=== PATIENT | male | born 1950 | race Caucasian/White ===

== ENCOUNTER 2022-04-17 06:43 | Observation (INO) ==
--- NOTE | 2022-03-14 13:06 | PAT Medication Instructions ---
Medication Instructions Date of Service March 14, 2022 Home Medications metoprolol tartrate 100 mg tablet 100 mg PO QAM rivaroxaban 20 mg tablet (Xarelto) 20 mg PO QAM tamsulosin 0.4 mg capsule (Flomax) 0.4 mg PO QAM ASK your prescriber and surgeon rivaroxaban 20 mg tablet (Xarelto) 20 mg PO QAM (in order to get spinal anesthesia DOS- must be off Xarelto/rivaroxaban for at least 72 hours) Take morning of surgery With a small sip of water, OTHERWISE NOTHING TO EAT OR DRINK AFTER MIDNIGHT: metoprolol tartrate 100 mg tablet 100 mg PO QAM tamsulosin 0.4 mg capsule (Flomax) 0.4 mg PO QAM Other Notes If you have any questions please call us at [phone] or [phone] or [phone] or [phone]
--- NOTE | 2022-03-17 09:47 | Anesthesiology Consultation ---
Date of Service March 17, 2022 Assessment & Plan (1) Encounter for pre-operative examination: Plan - PAT testing to be faxed to PCP for continuity of care. - cardiology clearance 02/13/22: "...may proceed with the proposed surgery...revised cardiac risk index and was found to be a class I risk...only cardiac diagnosis was paroxysmal atrial fibrillation...normal stress test in the past...may stop Xarelto 48 to 72 hours prior..." - cardiology 02/05/22: "...afib/flutter in March 2017...cardioversion...cancelled after he was found to be in NSR echo at the time showed some septal and inferior hypokinesis which was followed up with a stress echo in May 2017 that was negative for stress induced ischemia...h/o excessive alcohol consumption...appropriately anticoagulated on Xarelto..." 1 year f/u recommended. - COVID screening: Per assessment on 03/17/2022: Travel screen negative, no known COVID-19 positive contacts or current COVID-19 related symptoms in past 2 weeks. Pt vaccinated. Surgeon arranging preop COVID testing, scheduled 04/15/2022. Awaiting results. Chart Review Chart Review: Acceptable Risk for Surgery and Patient seen in Pre Admission Testing Teaching & Discussion Pre-Anesthesia Teaching/Discussion Notes: Instructed NPO after midnight before surgery, except medications with 15 cc of water. Medication instructions provided according to the PAT guidelines. History Surgery Operation Date: 04/17/22 09:00 Proposed Procedures p Right Total Knee Arthroplasty - Yasmany Cantrell MD Height/Weight Height: 5 ft 11 in Weight: 79.9 kg Allergies Allergy/AdvReac Type Severity Reaction Status Date / Time No Known Allergies Allergy Verified 03/14/22 10:02 Medications Home Medications Medication Instructions Recorded Confirmed Last Taken metoprolol tartrate 100 mg tablet 100 mg PO QAM 03/14/22 03/14/22 Unknown rivaroxaban 20 mg tablet (Xarelto) 20 mg PO QAM 03/14/22 03/14/22 Unknown tamsulosin 0.4 mg capsule (Flomax) 0.4 mg PO QAM 03/14/22 03/14/22 Unknown Past Medical History Medical History (Updated 03/17/22 @ 14:44 by Razia Pfeiffer PA-C) Afib on xarelto follows / [facility] cardio- [place] History of COVID-19 02/16/2022 home test-sore throat, cough, ghotra, no hospitalization no current issues On anticoagulant therapy xarelto Sleep apnea no device Patient denies h/o stroke, seizures, heart attack, heart failure, DM, HTN, blood clots or blood transfusions. Exercise / Class Metabolic Activity II 4-5 Yardwork/Stairs/Walk up hill (occ dizziness at top of 1 FOS requiring pt to stop; denies presycnope, CP or SOB) Past Surgical History Surgical History S/P colonoscopy S/P eye surgery 10 yrs old S/P tonsillectomy and adenoidectomy Past Anesthesia History No Hx of Anesthesia Complications and No Family Hx of Anesthesia Complications History of PONV No Hx of PONV and No Hx of Motion Sickness Social History Smoking Status: Never smoker Do You Dip or Chew Tobacco: No Hx Alcohol Use: Yes (4 beers per day) Alcohol type: beer alcohol intake frequency: 3 or more drinks per day (4-6 beers daily, denies hx withdrawal, DTs or seizures-advised) Hx Substance Use: No substance use type: does not use Review of Systems Occ reflux, triggered by alcohol intake. Patient denies chest pain, shortness of breath, dyspnea on exertion, fever, chills, cough, wheezing, or palpitations. Physical Exam Vital Signs Vitals BP 129/75 P 60 TEMP 98.1 SP02 95% on RA RESP 17 Physical Full cervical extension range of motion without pain TMD 3.5 finger breadths Mallampati Score 3 Dentition: two metal implants, full lower dentures; chipped left upper front tooth; denies crowns Lungs: normal respiratory effort. Clear throughout to auscultation, no adventitious breath sounds Cardiac: regular rate and rhythm, no murmurs noted Carotid arteries: negative bruit bilat Lab Results Anesthesia Preop Results Results Anesthesia Widget: WBC 5.34 K/ul (4.8-10.8) 03/17/22 Hgb 12.5 g/dl (14.0-18.0) L 03/17/22 Hct 36.4 % (40.1-51.0) L 03/17/22 Plt 282 K/uL (130-400) 03/17/22 Na 139 mmol/L (136-145) 03/17/22 K 4.6 mmol/L (3.5-5.1) 03/17/22 Cl 107 mmol/L (98-107) 03/17/22 CO2 27 mmol/L (21-32) 03/17/22 BUN 13 mg/dl (6-23) 03/17/22 Creat 0.82 mg/dl (0.6-1.4) 03/17/22 Glucose Level 94 mg/dl (70-99(Fasting)) 03/17/22 PT 13.0 Seconds (9.0-12.0) H 03/17/22 PTT 29.9 Seconds (21.0-31.0) 03/17/22 INR 1.2 (0.9-1.1) H 03/17/22 HA1c 5.9 % (4.5-5.6) H 03/17/22 Urine Color Yellow 03/17/22 Urine Appearance Clear (Clear) 03/17/22 Urine pH 5.5 (4.5-7.5) 03/17/22 Urine Specific Kingsley 1.015 (1.000-1.030) 03/17/22 Urine Protein Negative (Negative) 03/17/22 Urine Glucose (UA) Negative (Negative) 03/17/22 Urine Ketones Negative (Negative) 03/17/22 Urine Blood Negative (Negative) 03/17/22 Urine Nitrite Negative (Negative) 03/17/22 Urine Bilirubin Negative (Negative) 03/17/22 Urine Urobilinogen Negative (Negative) 03/17/22 Urine Leukocyte Esterase Trace (Negative) H 03/17/22 Urine WBC (Auto) 1-5 /hpf (0-5) 03/17/22 Urine RBC (Auto) 0-4 /hpf (0-4) 03/17/22 Urine Hyaline Casts (Auto) 0 /lpf (0-5) 03/17/22 Urine Epithelial Cells (Auto) 0-5 /lpf (0-5) 03/17/22 Urine Bacteria (Auto) Negative (Negative) 03/17/22 Blood Type A Positive 03/17/22 Antibody Screen NEGATIVE 03/17/22 Testing Laboratory Results Surgeon's office made aware of mild anemia. Electrocardiogram Date: 03/17/22 Sinus bradycardia with 1st degree AV block, rate 59 bpm Chest X-Ray Date: 03/17/22 Cardiomediastinal and hilar silhouettes are within normal limits. Atherosclerosis of the aorta. Hyperinflation with diaphragmatic flattening. No pneumothorax, pleural effusion, airspace consolidation or overt pulmonary edema. Degenerative changes of the shoulders and spine. IMPRESSION: No acute process Stress Test Date: 05/21/17 Exercise METS 8.5 MPHR 93% Negative stress echo for ischemia EF 55-60%
--- NOTE | 2022-04-16 15:53 | History & Physical Report ---
Date of Service April 16, 2022 Assessment & Plan (1) Primary osteoarthritis of right knee: Plan: Treatment options discussed with the patient. He has failed conservative measures and would like to proceed with knee replacement. Risks, benefits and alternatives to surgery including but not limited to infection, DVT, pain, stiffness, need for revision surgery, damage to blood vessels, damage to nerves, PE, , were discussed with the patient and they wish to proceed. Plan on right total knee arthroplasty scheduled with Dr. Cantrell at [facility] on April 17. We will plan on outpatient PT. We will resume home Xarelto postop for DVT prophylaxis. All questions answered. Follow-up postop. History of Present Illness Chief Complaint: Right knee pain Primary Care Provider: NO PCP 72-year-old male with past medical history significant for A. fib, high cholesterol, GERD, MARKEL who presents with ongoing right knee pain. He has end- stage osteoarthritis. He has failed conservative measures. Pain is interfering with his daily activities. He would like to proceed with knee replacement. Patient denies headaches, sweats, fevers, chills, double vision, blurred vision, cough, sore throat, dysphagia, chest pain, sob, wheezing, n/v/d/c, numbness, tingling, fatigue, urinary symptoms, mood disorders. ROS positive for right knee pain and stiffness. Allergies Allergy/AdvReac Type Severity Reaction Status Date / Time No Known Allergies Allergy Verified 03/14/22 10:02 Home Medications Medication Instructions Recorded Confirmed Type metoprolol tartrate 100 mg tablet 100 mg PO QAM 03/14/22 03/14/22 History rivaroxaban 20 mg tablet (Xarelto) 20 mg PO QAM 03/14/22 03/14/22 History tamsulosin 0.4 mg capsule (Flomax) 0.4 mg PO QAM 03/14/22 03/14/22 History Past Med/Surg History Medical History (Updated 04/16/22 @ 15:52 by Kota Rankin PA-C) Afib on xarelto follows / [facility] cardio- [place] History of COVID-19 02/16/2022 home test-sore throat, cough, ghotra, no hospitalization no current issues On anticoagulant therapy xarelto Sleep apnea no device Surgical History S/P colonoscopy S/P eye surgery 10 yrs old S/P tonsillectomy and adenoidectomy Social History Smoking Status: Never smoker Second Hand Exposure: No; Hx Alcohol Use: Yes (4 beers per day) Alcohol type: beer Hx Substance Use: No Preferred Language: Polish Communication Ability: Effective Marine Diesel Technician Required: No Beliefs That Will Affect Care: None Current Living Situation: Significant Other Feels Safe at Home: Yes Assistive Devices: Denture - Lower and Glasses Review of Systems All systems reviewed & are unremarkable except as noted in HPI & below Physical Exam Constitutional: well developed and well nourished; no acute distress Eyes: PERRL, conjunctivae normal, anicteric sclerae ENMT: external ear and nose normal, oropharynx normal Neck: trachea midline, no thyromegaly Respiratory: normal respiratory effort, lungs clear to auscultation Cardiovascular: RRR, no murmur, no edema Musculoskeletal: Right knee: Varus alignment. Mild effusion. Tenderness medial joint line and pes anserine. Moderate crepitation with range of motion. Positive Tania's, stable valgus varus stress. Range of motion 0-1 25. Mild pseudolaxity with valgus stress Skin: no rashes, warm and dry Neurologic: patellar DTR's 2+ bilat, sensation intact Psychiatric: A+Ox3, euthymic affect Results & Data ([facility]) Diagnostic Findings Right knee: Varus alignment. [id number] medial compartment, significant degenerative changes patellofemoral compartment. Peritubular osteophyte formation subchondral sclerosis.
[~2022-04-17 06:43] MED LIST: ACETAMINOPHEN 500 MG TAB PO SCH; BUPIVACAINE 0.5 % 5 MG/1 ML PF 10ML VIAL ONE; CeleBREX 200 MG CAP PO SCH; FAMOTIDINE 20 MG TAB PO SCH; GABAPENTIN 300 MG CAP PO SCH; LR 500ML BOLUS, THEN 15ML/HR IV SCH; METOCLOPRAMIDE HCL 10 MG TABLET PO SCH; ROPIVACAINE 0.5% 5 MG/ML 30 ML VIAL ONE; ROPIVACAINE 0.5% HCL/PF 150 MG, BUPIVACAINE 0.75% MPF 20 ML, EPINEPHrine 30MG/30ML (OR ... INFIL SCH; TRANEXAMIC ACID 1,000 MG **IV Intra-op IV SCH; TRANEXAMIC ACID 1,000 MG **IV Pre-op IV SCH; ceFAZolin 2000MG 2,000 MG/15 ML SYR IV SCH; dexAMETHasone 4 MG TAB PO SCH
[2022-04-17] MEDS ORDERED: ORTHO JOINT ANESTHETIC ONE (07:09)
[2022-04-17] MEDS ORDERED: MIDAZOLAM HCL 1 MG/ML 2ML VIAL ONE (07:16)
[2022-04-17] MEDS ORDERED: PROPOFOL IV EMULSION 10 MG/ML 20 ML VIAL IV ONE (07:16)
[2022-04-17] MEDS ORDERED: DEXAMETHASONE SOD INJ 4 MG/ML VIAL ONE (07:16)
[2022-04-17] MEDS ORDERED: LIDOCAINE 2% MPF LOCAL 5 ML VIAL INFIL ONE (07:16)
[2022-04-17] MEDS ORDERED: fentaNYL citrate 100 MCG/2 ML VIAL ONE (07:17)
--- NOTE | 2022-04-17 07:34 | History & Physical Bridge Note ---
Date of Service April 17, 2022 History & Physical Bridge Note I have examined the patient, reviewed the History & Physical and in the interval since the performance of the History & Physical I have noted the following changes of clinical significance: no changes noted
[2022-04-17] MEDS ORDERED: ePHEDrine sulfate 50 MG/ML AMP IV PRN (08:26)
[2022-04-17] MEDS ORDERED: ATROPINE SULFATE 0.1 MG/ML 10ML SYR IV PRN (08:26)
[2022-04-17] MEDS ORDERED: fentaNYL citrate 100 MCG/2 ML VIAL IV PRN (08:26)
[2022-04-17] MEDS ORDERED: ONDANSETRON INJ 2 MG/ML 2 ML VIAL IV PRN ×2 (08:26→12:55)
--- NOTE | 2022-04-17 10:38 | Operative Report ---
Post Operative Report Pre & Post Diagnosis Operation Date: 04/17/22 09:00 Pre-Op Diagnosis: Primary Osteoarthritis of Right Knee Post-Op Diagnosis: Primary Osteoarthritis of Right Knee I identified the patient and participated in the time-out.: Yes Procedure Operation Date: 04/17/22 09:00 Actual Procedures p Right Total Knee Arthroplasty(Right), application superficial wound VAC- Yasmany Cantrell MD Surgeon Yasmany Cantrell MD Band Bias Machine Operator Horace JONES Estimated Blood Loss 5 Findings Consistent with Post-Op Diagnosis Specimens Bone cuts Drains 2 Hemovac Anesthesia Type MAC Spinal Regional Complications none Disposition Disposition: Recovery Room Indications 72-year-old male with chronic gross osteoarthritis right knee failed conservative management. X-rays demonstrate [id number] in medial aspect the patellofemoral joint and [id number] medial compartment with a varus knee. Description of Procedure Patient was taken to the operating room placed supine on the operating table and anesthetized under spinal MAC regional block anesthesia. Exam under anesthesia demonstrated relatively thin leg with a varus knee no pseudolaxity full range of motion small effusion. A pneumatic tourniquet was placed about the thigh of the right lower extremity. The right lower extremity was prepped and draped in usual sterile fashion. The leg was elevated exsanguinated with an Esmarch bandage and the pneumatic tourniquet was raised to 300 mm mercury. An anterior incision was made across the right knee. The skin was incised longitudinally subcutaneous flaps were elevated and an incision was made through the medial retinaculum extending up into the mid third of the quadriceps tendon and extended down to the medial tibial tubercle. Intra-articular findings demonstrated tricompartmental osteoarthritis with [id number] medial compartment and medial patellofemoral joint with some ganglion on cysts in the retropatellar fat pad and anterior medial knee and cyst over the ACL. Degenerative medial and lateral meniscus tears and moderate synovitis. The knee was exposed by excising the infrapatellar fat pad, excising the meniscal remnants and anterior cruciate ligament. Any inflamed synovial tissue was resected. The fat pad over the anterior femur was resected for placement of the component in that area. The lateral synovial bands were release. The cysts were all resected. The femur was exposed. The custom femoral cutting block was pinned in position. The distal femoral cutting block was applied. The distal femoral cut was made with the oscillating saw. The size 8, 4-in-1 cutting block was placed. The anterior and posterior chamfer cuts were made. The knee was extended and a subperiosteal peel lateral release was performed around the patella. The patella width was measured and width was reproduced using freehand cut technique. The 35 millimeter symmetrical patella was used. 3 drill holes a re made for the pegs. The tibia was exposed. A custom tibial cutting block was positioned and drill holes were made for the cutting guide. Cutting guide was placed and the proximal cut was made with the oscillating saw. All osteophytes were resected. The lamina concrete form setter and finisher was used to assess ligamentous balance and the ligaments were balanced in extension and flexion. He had a medial release around the proximal medial tibia and a minor posterior medial release. The tibia was reexposed and measured for a size F tibial component. This was externally rotated in line with the tibial tubercle and the fixation pins were drilled. The proximal tibia was fashioned with the drill and punch. The size 8 CR femoral trial was inserted. The trial MC inserts were used. The 12 mm insert gave balanced ligaments through full range of motion. The patella tracked centrally. the trials were removed. The orthomix anesthetic cocktail was injected per protocol. The knee was then copiously irrigated with pulsatile lavage saline solution. The final components were cemented with Refobacin bone cement. The final components were Olvin persona 8 standard CR right femoral component, capital F right tibial component, 12 MC right tibial polyethylene bearing, 35 symmetrical patella. After the cement cured with the knee in full extension the Betadine soak was used per protocol. The knee joint was copiously irrigated with pulsatile lavage saline solution . 2 drains were brought out laterally and connected to a Hemovac. The quadriceps tendon and medial retinaculum were closed with interrupted [id number] #1 Vicryl sutures. The knee was taken through a full range of motion and repair was secure. The subcutaneous tissues were closed with 2-0 Vicryl sutures and skin was closed with paulina. Aris and Acticoat superficial wound VAC was applied and the patient tolerated the procedure well. Horace JONES my physician talent acquisition assistant, participated as wellness assistant and was integral part in all aspects of the procedure., He assisted in soft tissue retraction, instrument management ,leg positioning, the closure and will participate in the postoperative care of the patient. I attest to the content of the Intraoperative Record and any orders documented therein. Any exceptions are noted below.
--- NOTE | 2022-04-17 11:45 | Anesthesiology Progress Note ---
Date of Service April 17, 2022 Anesthesia Post Procedure Vital Signs Vital Signs: Temp Pulse Pulse Resp BP Pulse Ox O2 Del Method 04/17/22 11:40 58 L 14 125/70 95 Nasal Cannula 04/17/22 11:10 61 18 117/70 94 Room Air 04/17/22 11:30 60 20 123/74 96 Nasal Cannula 04/17/22 11:20 60 16 108/64 97 Room Air 04/17/22 11:00 58 L 20 109/63 98 Oxymask 04/17/22 10:51 97.0 F L 58 L 16 97/59 L 98 Oxymask 04/17/22 07:21 97.9 F 61 18 151/83 H 97 Room Air O2 Flow Rate 04/17/22 11:40 2 04/17/22 11:10 04/17/22 11:30 2 04/17/22 11:20 04/17/22 11:00 3 04/17/22 10:51 6 04/17/22 07:21 Transfer of Care Handoff Completed per policy Notes Mental Status: alert / awake / arousable and participated in evaluation Patient Amnestic to Procedure: Yes Nausea / Vomiting: adequately controlled Pain: adequately controlled Airway Patency, RR, SpO2: stable & adequate BP & HR: stable & adequate Hydration State: stable & adequate Neuraxial Anesthesia: was administered and sensory block is resolving Anesthetic Complications: no major complications apparent and Pt Satisfied with anesthetic care
--- NOTE | 2022-04-17 12:35 | XRay Report ---
XR knee RT 1 or 2V routine HISTORY: 72 years-old Male Surgical Post Op right knee total joint arthroplasty COMPARISON: None TECHNIQUE: 3 views of the right knee FINDINGS: Total joint arthroplasty with patellar resurfacing. Anterior midline skin paulina are noted along wit h expected postoperative soft tissue swelling with deep tissue air. Surgical drainage catheter is in place. No acute fracture, alignment or unexpected opaque foreign body. IMPRESSION: Total joint arthroplasty with expected postoperative changes. ACT 112: Negative or not required by law. The above report was generated using voice recognition software. It may contain grammatical, syntax o r spelling errors. Electronically signed by: Daren Bishop M.D. 04/17/2022 12:34 PM
[2022-04-17] MEDS ORDERED: NALOXONE HCL 0.4 MG/1 ML VIAL/CARP IV PRN (12:55)
[2022-04-17] MEDS ORDERED: bisacodyL 10 MG SUPP PR PRN (12:55)
[2022-04-17] MEDS ORDERED: oxyCODONE HCL IR 5 MG TAB (IMMEDIATE RELEASE) PO PRN (12:55)
[2022-04-17] MEDS ORDERED: MAGNESIUM HYDROXIDE SUSP 30 ML UDC PO PRN (12:55)
[2022-04-17] MEDS ORDERED: HYDROmorphone INJ 0.5 MG/0.5 ML SYR IV PRN (12:55)
[2022-04-17] MEDS: SODIUM CHLORIDE 0.9% 1000ML 1,000 ML IV SCH ×2 (13:17→22:41)
--- NOTE | 2022-04-17 13:23 | Consultation ---
Date of Consultation April 17, 2022 Assessment & Plan (1) Primary osteoarthritis of right knee: (2) Afib: (3) HTN (hypertension): (4) BPH (benign prostatic hyperplasia): (5) Pre-diabetes: Plan This is a 72-year-old male who has significant past medical history of PAF anticoagulated on Xarelto, HTN, HLD, alcohol abuse, MARKEL noncompliant with CPAP, GERD and BPH who presents for elective right total knee arthroplasty by Dr. Cantrell. Primary osteoarthritis of R knee s/p R TKA by Dr. Cantrell, POD #0 EBL 10ml tolerated procedure well pain/wound management per ortho activity and therapy as prescribed by ortho encourage incentive spirometry PAF continue metoprolol Xarelto to resume evening of 04/18, per ortho HTN continue metoprolol BPH continue flomax Pre diabetes a1c pre op was 5.9 encourage diet/lifestyle modifications post operatively follow up with PCP Alcohol Abuse 4 light beers a day, last drink 04/16 at 1700 will add awss protocol, prn ativan no hx of withdrawal in past DVT ppx: SCDS, Xarelto to resume 04/18 Dispo: per primary PCP: Betzy Vazquez FULL CODE Pt was seen and examined in collaboration with Dr. Feldman, please see addendum Thank you for this consultation. We will follow the patient with you during their hospital stay. You can reach a member of the [facility] Hospitalist Team 02/03 via hospitalist role on tiger text. Supervising Physician Co-Signing Physician Notes 72-year-old male with PMH of PAF on Xarelto, HTN, HLD, alcohol abuse, MARKEL noncompliant with CPAP, GERD and BPH is a medical consult status post right total knee arthroplasty by Dr. Cantrell on 04/17/22. 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 Reports minimal belly distention, has not moved gas, c/t monitor for bowel movements/activity. Pain Mx/PT OT/DVT Px per 1* team. Upon Exam: GENERAL: Alert and oriented x3. NAD, on RA. HEENT: No pallor, no icterus. Pupils equal, round and reactive to light. Oral mucosa moist. NECK: No JVD, no neck masses. HEART: S1 and S2 heard. Regular rate and rhythm. No murmur, no gallop. RESPIRATORY SYSTEM: Normal AP diameter. No accessory muscle use. No wheezing, no crackles. ABDOMEN: Soft, bowel sounds decreased, minimal distension, nontender. CENTRAL NERVOUS SYSTEM: No facial droop. Speech is clear. Obeys simple commands. Moves extremities. EXTREMITIES: No edema, no erythema seen. Rt knee w/ clean dressing w/o soakage. Hemovac drain in situ w/ minimal serosanguineous collection noted. Distal RLE NV status WNL. I have seen and examined the patient and have discussed the case with the provider above. I agree with the assessment and plan as stated. History of Present Illness Requesting Physician: Dr. Cantrell Reason for Consultation: Dr. Cantrell Attending Physician: Yasmany Cantrell MD History of Present Illness This is a 72-year-old male who has significant past medical history of PAF anticoagulated on Xarelto, HTN, HLD, alcohol abuse, MARKEL noncompliant with CPAP, GERD and BPH who presents for elective right total knee arthroplasty by Dr. Cantrell. He tolerated the procedure well. Of significance pt follows [facility] provider Betzy Vazquez for primary care. He also follows [facility] cardiology. He has hx of PAF back in 2017 w/o recurrence. He is maintained on metoprolol succinate and xarelto. He also has hx of HTN controlled with metoprolol. Per pre op clearance notes he does have hx of alcohol abuse drinking ~ 4 beers a day. His last drink was last evening at 1700. He is sitting up in bed eating lunch. States procedure went well. Denies any pain and currently still has no feeling to b/l lower extremities. Denies f/c/s, chest pain, sob, n/v/d, abd pain, cough, uri sx, change in bowel or urinary habits. Offers no acute concerns. Brother is at bedside who also had knee replacements by Dr. Cantrell. Allergies Allergy/AdvReac Type Severity Reaction Status Date / Time No Known Allergies Allergy Verified 04/17/22 07:12 Home Medications Medication Instructions Recorded Confirmed Type rivaroxaban 20 mg tablet (Xarelto) 20 mg PO QAM 03/14/22 04/17/22 History tamsulosin 0.4 mg capsule (Flomax) 0.4 mg PO QAM 03/14/22 04/17/22 History metoprolol succinate 100 mg 100 mg PO DAILY 04/17/22 04/17/22 History tablet,extended release 24 hr Patient History Medical History (Updated 04/17/22 @ 13:19 by Shelly Clement PA-C) Afib on xarelto follows / [facility] cardio- [place] BPH (benign prostatic hyperplasia) GERD (gastroesophageal reflux disease) History of COVID-19 02/16/2022 home test-sore throat, cough, ghotra, no hospitalization no current issues HLD (hyperlipidemia) HTN (hypertension) On anticoagulant therapy xarelto Pre-diabetes Sleep apnea no device Surgical History S/P colonoscopy S/P eye surgery 10 yrs old S/P tonsillectomy and adenoidectomy Family History (Updated 04/17/22 @ 13:45 by Shelly Clement PA-C) Father Myocardial infarction Diabetes Mother , 80 Lymphoma Social History Smoking Status: Never smoker Second Hand Exposure: No; Do You Dip or Chew Tobacco: No; Tobacco Cessation Education Requested by Patient: No Hx Alcohol Use: Yes (4 beers per day) Alcohol type: beer Hx Substance Use: No Preferred Language: Swedish Communication Ability: Effective 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 Beliefs That Will Affect Care: None Current Living Situation: Significant Other Other Information That Helps Us Care for You: No Feels Safe at Home: Yes Safety Concerns: Feels Safe At This Time Assistive Devices: Denture - Lower and Glasses Review of Systems Review of Systems: All systems reviewed & are unremarkable except as noted in HPI & below Physical Exam Physical Exam: Constitutional: WD/WN, M sitting up in bed eating lunch, vitals as above, NAD, pleasant, conversing easily Head: Normocephalic, Atraumatic Eyes: PERRL, conjunctivae normal, anicteric sclerae ENMT: external ear and nose normal, oropharynx normal Neck: trachea midline, no thyromegaly normal visual inspection Respiratory: normal respiratory effort, lungs clear to auscultation, no wheeze, rales, rhonchi. Normal insp/exp effort, no accessory muscle use Cardiovascular: RRR, no murmur, no edema Vessels: no JVD or carotid bruit Chest: normal inspection of chest Abdomen: normal bowel sounds, soft, nontender, no hepatosplenomegaly Musculoskeletal: no cyanosis or clubbing, extremities motor strength 5/5 Skin: no rashes, warm and dry normal turgor Neurologic: PERRL, EOMI, accommodation nl, no face palsy, no dysarthria CN's II-XI intact bilaterally and moves all extremities Psychiatric: A+Ox3, euthymic affect Lymphatic: no cervical or axillary lymphadenopathy : deferred Results & Data ([facility]) Vital Signs (Past 12 Hours) Vital Signs Temp Pulse Pulse Resp BP Pulse Ox O2 Del Method 04/17/22 12:30 61 14 121/67 97 Nasal Cannula 04/17/22 12:15 36.1 C L 62 12 117/69 95 Nasal Cannula 04/17/22 12:00 55 L 12 123/71 96 Nasal Cannula 04/17/22 11:50 56 L 12 115/70 95 Nasal Cannula 04/17/22 11:40 58 L 14 125/70 95 Nasal Cannula 04/17/22 11:10 61 18 117/70 94 Room Air 04/17/22 11:30 60 20 123/74 96 Nasal Cannula 04/17/22 11:20 60 16 108/64 97 Room Air 04/17/22 11:00 58 L 20 109/63 98 Oxymask 04/17/22 10:51 36.1 C L 58 L 16 97/59 L 98 Oxymask 04/17/22 07:21 36.6 C 61 18 151/83 H 97 Room Air O2 Flow Rate 04/17/22 12:30 2 04/17/22 12:15 2 04/17/22 12:00 2 04/17/22 11:50 2 04/17/22 11:40 2 04/17/22 11:10 04/17/22 11:30 2 04/17/22 11:20 04/17/22 11:00 3 04/17/22 10:51 6 04/17/22 07:21 Laboratory Results Preop lab work from 03/17/2022 CBC: H&H 12.5 and 36.4, WC 5.34, platelet 282 BMP: Sodium 139, K4.6, BUN 13, creatinine 0.82 A1c 5.9 Diagnostic Findings CXR - no acute abnormality from 03/17/22 Medications Administered Current Inpatient Medications Acetaminophen (Acetaminophen 500 Mg Tab) 1,000 mg PO Q8 [facility] Stop: 05/17/22 13:59 Bisacodyl (Bisacodyl 10 Mg Supp) 10 mg [place] DAILY PRN PRN Reason: Constipation Stop: 05/17/22 12:54 Docusate Sodium (Docusate Sodium 100 Mg Cap) 100 mg PO BID [facility] Stop: 05/17/22 20:59 Hydromorphone HCl (Hydromorphone Inj 0.5 Mg/0.5 Ml Syr) 0.5 mg IV Q4H PRN PRN Reason: Pain or Pre PT Stop: 05/01/22 12:54 Sodium Chloride (Nss 1000ml) 1,000 mls @ 100 mls/hr IV .Q10H [facility] Stop: 04/18/22 06:00 Last Admin: 04/17/22 13:17 Dose: 100 mls/hr Cefazolin Sodium (Ancef 2000mg) 2,000 mg in 15 mls @ 3.75 mls/min IV Q8H [facility]; Protocol Stop: 04/18/22 01:03 Magnesium Hydroxide (Magnesium Hydroxide Susp 30 Ml Udc) 30 ml PO Q6H PRN PRN Reason: Constipation Stop: 05/17/22 12:54 Metoprolol Tartrate (Metoprolol Tartrate 100 Mg Tab) 100 mg PO QAM [facility] Stop: 05/18/22 08:59 Multivitamins (Multivitamin Tab) 1 [facility] Stop: 05/18/22 08:59 Naloxone HCl (Naloxone Hcl 0.4 Mg/1 Ml Vial/Carp) 0.1 mg IV Q5M PRN PRN Reason: Oversedation/Resp Depression Stop: 05/17/22 12:54 Ondansetron HCl (Ondansetron Inj 2 Mg/Ml 2 Ml Vial) 4 mg IV Q6H PRN PRN Reason: Nausea And Vomiting Stop: 05/17/22 12:54 Oxycodone HCl (Oxycodone Hcl Ir 5 Mg Tab (Immediate Release)) 5 - 10 mg PO Q4H PRN PRN Reason: Pain or Pre PT Stop: 05/01/22 12:54 Rivaroxaban (Rivaroxaban 20 Mg Tab) 20 mg PO DAILY@1700 [facility] Stop: 05/18/22 16:59 Sennosides (Senna 8.6 Mg Tab) 17.2 mg PO HS [facility] Stop: 05/17/22 20:59 Tamsulosin HCl (Tamsulosin Hcl 0.4 Mg Cap) 0.4 mg PO QAM [facility] Stop: 05/18/22 08:59 ECG Rate (beats per minute): 59 Rhythm: sinus bradycardia
[2022-04-17] MEDS ORDERED: LORazepam 1 MG TAB PO PRN (13:43)
[2022-04-17] MEDS: ACETAMINOPHEN 500 MG TAB PO SCH ×2 (14:23→21:01)
[2022-04-17] MEDS: ceFAZolin 2000MG 2,000 MG/15 ML SYR IV SCH (18:06)
[2022-04-17] MEDS: DOCUSATE SODIUM 100 MG CAP PO SCH (20:26)
[2022-04-17] MEDS ORDERED: SENNA 8.6 MG TAB PO SCH (21:00)
[2022-04-18] MEDS: ceFAZolin 2000MG 2,000 MG/15 ML SYR IV SCH (00:56)
[2022-04-18] MEDS: ACETAMINOPHEN 500 MG TAB PO SCH (05:31)
[2022-04-18 07:05] LABS: Hematocrit (blood only) 28.4 % (40.1-51.0); Mean Corpuscular Hemoglobin 33.8 pg (25.0-34.0); Mean Corpuscular Hgb Conc 35.2 g/dL (32.0-36.0); Mean Corpuscular Volume 95.9 fL (80.0-100.0); Mean Platelet Volume 11.5 fL (9.4-12.4); Nucleated RBC # (auto) 0.07 K/uL (0-0); Nucleated RBC % (auto) 0.4 %; Platelet Count 267 K/uL (130-400); RDW Coefficient of Variation 13.9 % (11.5-14.5); RDW Standard Deviation 48.5 fL (36.4-46.3); Red Blood Count 2.96 M/uL (4.63-6.08); White Blood Count 19.22 K/ul (4.8-10.8)
[2022-04-18 07:26] LABS: BUN Creatinine Ratio 21.1 (10-20); Calcium 8.3 mg/dl (8.5-10.1); Creatinine Clr Calc Pharmacy 93.6 ml/min; Est GFR (African American) 105.6 ml/min; Est GFR (Non-African American) 91.1 ml/min; Potassium 4.3 mmol/L (3.5-5.1)
[2022-04-18] MEDS: DOCUSATE SODIUM 100 MG CAP PO SCH (07:52)
[2022-04-18] MEDS ORDERED: METOPROLOL SUCC 50MG EXT REL TAB PO SCH (09:00)
[2022-04-18] MEDS ORDERED: MULTIVITAMIN TAB PO SCH (09:00)
[2022-04-18] MEDS ORDERED: TAMSULOSIN HCL 0.4 MG CAP PO SCH (09:00)
[2022-04-18] MEDS ORDERED: METOPROLOL TARTRATE 100 MG TAB PO SCH (09:00)
--- NOTE | 2022-04-18 10:00 | Orthopedic Progress Note ---
Date of Service April 18, 2022 Assessment & Plan (1) Primary osteoarthritis of right knee: Plan: Postop day 1 status post right total knee arthroplasty. PT/OT protocols. Weightbearing as tolerated. DVT prophylaxis-Xarelto p.o. daily, SCDs, [place]. Pain management as written. Patient still needs to undergo occupational therapy. We will continue to watch his blood pressures for now. We will recheck him a little bit later this morning. DC planning-planning for OPPT upon discharge. Admission and Anticipated Discharge Date Admission Date: April 17, 2022 Subjective Postop day 1 Patient sitting up in his chair at the bedside. Discussion with nursing staff as well as physical therapist states that the patient had low blood pressure this morning. He apparently had some lightheadedness near the end of his PT session. SBP at that time was around 60s per physical therapy. Patient did not pass out or have any kind of loss of consciousness. Nursing noted that SBP was 125 when he received medications including metoprolol. Currently the patient is sitting up in the chair to bedside and he feels well. Denies any shortness of breath, chest pain, lightheadedness. Pain is controlled. Physical Exam Physical Exam: Dressings are clean, dry, and intact. Calves are soft nontender. Neurovascular is intact. Toes are mobile. He has good dorsiflexion and plantarflexion of the right foot. Hemovac drainage was 50 mL from the prev ious shift. Results & Data ([facility]) Vital Signs (Past 12 Hours) Vital Signs Temp Pulse Resp BP Pulse Ox O2 Del Method 04/18/22 09:32 92/45 L 04/18/22 07:58 36.8 C 76 16 127/65 94 04/18/22 03:30 37 C 65 16 139/80 94 Room Air Laboratory Results Laboratory Results WBC 19.22 K/ul (4.8-10.8) H 04/18/22 06:06 RBC 2.96 M/uL (4.63-6.08) L 04/18/22 06:06 Hgb 10.0 g/dl (14.0-18.0) L 04/18/22 06:06 Hct 28.4 % (40.1-51.0) L 04/18/22 06:06 MCV 95.9 fL (80.0-100.0) 04/18/22 06:06 MCH 33.8 pg (25.0-34.0) 04/18/22 06:06 MCHC 35.2 g/dL (32.0-36.0) 04/18/22 06:06 RDW Std Deviation 48.5 fL (36.4-46.3) H 04/18/22 06:06 RDW Coeff of Silvia 13.9 % (11.5-14.5) 04/18/22 06:06 Plt Count 267 K/uL (130-400) 04/18/22 06:06 MPV 11.5 fL (9.4-12.4) 04/18/22 06:06 Absolute Nucleated RBC 0.07 K/uL (0-0) H 04/18/22 06:06 Nucleated RBC % (auto) 0.4 % 04/18/22 06:06 Sodium 136 mmol/L (136-145) 04/18/22 06:06 Potassium 4.3 mmol/L (3.5-5.1) 04/18/22 06:06 Chloride 108 mmol/L (98-107) H 04/18/22 06:06 Carbon Dioxide 23 mmol/L (21-32) 04/18/22 06:06 Anion Gap 5 (3-11) 04/18/22 06:06 BUN 16 mg/dl (6-23) 04/18/22 06:06 Creatinine 0.76 mg/dl (0.6-1.4) 04/18/22 06:06 Est Cr Clr Drug Dosing 93.6 ml/min 04/18/22 06:06 Est GFR ( Amer) 105.6 ml/min 04/18/22 06:06 Est GFR (Non-Af Amer) 91.1 ml/min 04/18/22 06:06 BUN/Creatinine Ratio 21.1 (10-20) H 04/18/22 06:06 Glucose 111 mg/dl (70-99(Fasting)) H 04/18/22 06:06 Calcium 8.3 mg/dl (8.5-10.1) L 04/18/22 06:06 SARS-CoV-2, RNA, NAAT NEGATIVE (NEGATIVE) 04/17/22 06:54 Impressions Knee X-Ray 04/17/22 10:57 XR knee RT 1 or 2V routine HISTORY: 72 years-old Male Surgical Post Op right knee total joint arthroplasty COMPARISON: None TECHNIQUE: 3 views of the right knee FINDINGS: Total joint arthroplasty with patellar resurfacing. Anterior midline skin paulina are noted along with expected postoperative soft tissue swelling with deep tissue air. Surgical drainage catheter is in place. No acute fracture, alignment or unexpected opaque foreign body. IMPRESSION: Total joint arthroplasty with expected postoperative changes. ACT 112: Negative or not required by law. The above report was generated using voice recognition software. It may contain grammatical, syntax or spelling errors. Electronically signed by: Daren Bishop M.D. 04/17/2022 12:34 PM
--- NOTE | 2022-04-18 11:53 | Hospitalist Progress Note ---
Date of Service April 18, 2022 Assessment & Plan (1) Primary osteoarthritis of right knee: (2) Afib: (3) HTN (hypertension): (4) BPH (benign prostatic hyperplasia): (5) Pre-diabetes: Plan Patient is a 72 yr male with H/O PAF anticoagulated on Xarelto, HTN, HLD, alcohol abuse, MARKEL noncompliant with CPAP, GERD and BPH who presents for elective right total knee arthroplasty by Dr. Cantrell. Primary Osteoarthritis of Right knee s/p R TKA by Dr. 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 DVT Px Xarelto Code Status FULL CODE Admission and Anticipated Discharge Date Admission Date: April 17, 2022 Subjective Patient is seen and examined at bedside Right knee pain at surgical site is controlled States having transient dizziness this morning while having physical therapy Currently dizziness resolved Denies any chest pain, shortness of breath, nausea, abdominal pain Offers no other complaints Review of Systems Review of Systems: All systems reviewed & are unremarkable except as noted in Subjective Physical Exam Physical Exam: Physical Exam: Vitals signs as noted above General Appearance:Thin, no apparent distress Head: normocephalic, Atraumatic Eyes: normal inspection, EOMI Neck: supple, Trachea midline Respiratory/Chest: Normal breath sounds, CTA, No accessory muscle use Cardiovascular: S1, S2, No murmur Abdomen/GI:Soft, Non tender, Bowel sounds present Extremities/Musculoskeletal:normal inspection, no edema, R knee in surgical dressing Neurologic/Psych:AAOX3, grossly no focal neurological deficits Skin: normal color, warm Results & Data Results & Data ([facility]) Vital Signs (Past 12 Hours) Vital Signs Temp Pulse Resp BP Pulse Ox O2 Del Method 04/18/22 09:32 92/45 L 04/18/22 07:58 36.8 C 76 16 127/65 94 04/18/22 03:30 37 C 65 16 139/80 94 Room Air Laboratory Results Short CBC 04/18/22 Range/Units 06:06 WBC 19.22 H (4.8-10.8) K/ul Hgb 10.0 L (14.0-18.0) g/dl Hct 28.4 L (40.1-51.0) % Plt Count 267 (130-400) K/uL BMP 04/18/22 06:06 Sodium 136 Potassium 4.3 Chloride 108 H Carbon Dioxide 23 BUN 16 Creatinine 0.76 Glucose 111 H Calcium 8.3 L
[2022-04-18] MEDS ORDERED: RIVAROXABAN 20 MG TAB PO SCH (17:00)
--- NOTE | 2022-04-20 07:59 | Discharge Summary ---
Date of Service April 20, 2022 Admission HPI Per Admitting Provider 72-year-old male with past medical history significant for A. fib, high cholesterol, GERD, MARKEL who presents with ongoing right knee pain. He has end- stage osteoarthritis. He has failed conservative measures. Pain is interfering with his daily activities. He would like to proceed with knee replacement. Patient denies headaches, sweats, fevers, chills, double vision, blurred vision, cough, sore throat, dysphagia, chest pain, sob, wheezing, n/v/d/c, numbness, tingling, fatigue, urinary symptoms, mood disorders. ROS positive for right knee pain and stiffness. Admission Exam Per Admitting Provider Physical Exam Constitutional: well developed and well nourished; no acute distress Eyes: PERRL, conjunctivae normal, anicteric sclerae ENMT: external ear and nose normal, oropharynx normal Neck: trachea midline, no thyromegaly Respiratory: normal respiratory effort, lungs clear to auscultation Cardiovascular: RRR, no murmur, no edema Musculoskeletal: Right knee: Varus alignment. Mild effusion. Tenderness medial joint line and pes anserine. Moderate crepitation with range of motion. Positive Tania's, stable valgus varus stress. Range of motion 0-1 25. Mild pseudolaxity with valgus stress Skin: no rashes, warm and dry Neurologic: patellar DTR's 2+ bilat, sensation intact Psychiatric: A+Ox3, euthymic affect Principal Diagnosis Right Knee Osteoarthritis Discharge Data Allergies Allergy/AdvReac Type Severity Reaction Status Date / Time No Known Allergies Allergy Verified 04/17/22 07:12 Consultations 04/17/22 13:07 Consult Hospitalist Routine Procedures Performed Operation Date: 04/17/22 09:00 Actual Procedures p Right Total Knee Arthroplasty(Right) - Yasmany Cantrell MD Ordered Studies 04/17/22 05:00 US - OR guided needle placemen Routine Hospital Course (1) Primary osteoarthritis of right knee: Patient:LUBA ISAAC Admit Date:04/17/22 MR#:[id number] Att Phy:Yasmany Cantrell M.D. Acct ID:[id number] Lana Phy:Betzy Vazquez DO Date:1950 Fam Phy: Age:72 Location:3N Sex:M Room/Bed:N387-2 cc: ~ *NOTICE TO RECEIVING [employer]/AGENCY This information is strictly Confidential and protected under [place] law. [place] law prohibits you from making any further disclosure of this information unless further disclosure is expressly permitted by the written consent of the person to whom it pertains or is authorized by law. A general authorization for the release of medical or other information is not sufficient for this purpose. Hospital accepts no responsibility if the information is made available to any other person, INCLUDING THE PATIENT. Date of Service April 18, 2022 Assessment & Plan (1) Primary osteoarthritis of right knee: Plan: Postop day 1 status post right total knee arthroplasty. PT/OT protocols. Weightbearing as tolerated. DVT prophylaxis-Xarelto p.o. daily, SCDs, LUCAS west. Pain management as written. Patient still needs to undergo occupational therapy. We will continue to watch his blood pressures for now. We will recheck him a little bit later this morning. DC planning-planning for OPPT upon discharge. Addendum: Pt progressed with his PT/OT. PT worked with him a second time in the afternoon to go over ambulating on stairs. Pt did very well. No LH. PT stated he progressed well on the stairs. Latest blood pressure showing SBP at 124. Patient was remaining stable and was felt he was stable for discharge. Admission and Anticipated Discharge Date Admission Date: April 17, 2022 Subjective Postop day 1 Patient sitting up in his chair at the bedside. Discussion with nursing staff as well as physical therapist states that the patient had low blood pressure this morning. He apparently had some lightheadedness near the end of his PT session. SBP at that time was around 60s per physical therapy. Patient did not pass out or have any kind of loss of consciousness. Nursing noted that SBP was 125 when he received medications including metoprolol. Currently the patient is sitting up in the chair to bedside and he feels well. Denies any shortness of breath, chest pain, lightheadedness. Pain is controlled. Physical Exam Physical Exam: Dressings are clean, dry, and intact. Calves are soft nontender. Neurovascular is intact. Toes are mobile. He has good dorsiflexion and plantarflexion of the right foot. Hemovac drainage was 50 mL from the previous shift. Results & Data ([facility]) Vital Signs (Past 12 Hours) Vital Signs Temp Pulse Resp BP Pulse Ox O2 Del Method 04/18/22 09:32 92/45 L 04/18/22 07:58 36.8 C 76 16 127/65 94 04/18/22 03:30 37 C 65 16 139/80 94 Room Air Laboratory Results Laboratory Results WBC 19.22 K/ul (4.8-10.8) H 04/18/22 06:06 RBC 2.96 M/uL (4.63-6.08) L 04/18/22 06:06 Hgb 10.0 g/dl (14.0-18.0) L 04/18/22 06:06 Hct 28.4 % (40.1-51.0) L 04/18/22 06:06 MCV 95.9 fL (80.0-100.0) 04/18/22 06:06 MCH 33.8 pg (25.0-34.0) 04/18/22 06:06 MCHC 35.2 g/dL (32.0-36.0) 04/18/22 06:06 RDW Std Deviation 48.5 fL (36.4-46.3) H 04/18/22 06:06 RDW Coeff of Silvia 13.9 % (11.5-14.5) 04/18/22 06:06 Plt Count 267 K/uL (130-400) 04/18/22 06:06 MPV 11.5 fL (9.4-12.4) 04/18/22 06:06 Absolute Nucleated RBC 0.07 K/uL (0-0) H 04/18/22 06:06 Nucleated RBC % (auto) 0.4 % 04/18/22 06:06 Sodium 136 mmol/L (136-145) 04/18/22 06:06 Potassium 4.3 mmol/L (3.5-5.1) 04/18/22 06:06 Chloride 108 mmol/L (98-107) H 04/18/22 06:06 Carbon Dioxide 23 mmol/L (21-32) 04/18/22 06:06 Anion Gap 5 (3-11) 04/18/22 06:06 BUN 16 mg/dl (6-23) 04/18/22 06:06 Creatinine 0.76 mg/dl (0.6-1.4) 04/18/22 06:06 Est Cr Clr Drug Dosing 93.6 ml/min 04/18/22 06:06 Est GFR ( Amer) 105.6 ml/min 04/18/22 06:06 Est GFR (Non-Af Amer) 91.1 ml/min 04/18/22 06:06 BUN/Creatinine Ratio 21.1 (10-20) H 04/18/22 06:06 Glucose 111 mg/dl (70-99(Fasting)) H 04/18/22 06:06 Calcium 8.3 mg/dl (8.5-10.1) L 04/18/22 06:06 SARS-CoV-2, RNA, NAAT NEGATIVE (NEGATIVE) 04/17/22 06:54 Impressions Knee X-Ray 04/17/22 10:57 XR knee RT 1 or 2V routine HISTORY: 72 years-old Male Surgical Post Op right knee total joint arthroplasty COMPARISON: None TECHNIQUE: 3 views of the right knee FINDINGS: Total joint arthroplasty with patellar resurfacing. Anterior midline skin paulina are noted along with expected postoperative soft tissue swelling with deep tissue air. Surgical drainage catheter is in place. No acute fracture, alignment or unexpected opaque foreign body. IMPRESSION: Total joint arthroplasty with expected postoperative changes. ACT 112: Negative or not required by law. The above report was generated using voice recognition software. It may contain grammatical, syntax or spelling errors. Electronically signed by: Daren Bishop M.D. 04/17/2022 12:34 PM Total Time Total Time Spent Total Time Spent (In Minutes): 10 Discharge Plan Discharge Items Patient Disposition: Home - Self-Care Reason For Visit: Unilateral Primary Osteoarthritis Right Knee Discharge Diagnosis: Right knee osteoarthritis Activity: Per Instructions section Weightbearing: Right weightbearing Weightbearing Comment: As tolerated with walker Non-emergency contact: Surgeon Call non-emergency contact if: you have any medication questions, your pain is worsening, your temperature is above 101.5, your wound has increased redness and your wound has increased drainage Follow-up/Referrals: Yasmany Cantrell MD [Surgeon] - (Follow-up with Dr. Baker in 2 weeks from the day of your surgery for your first postoperative visit.) Betzy Vazquez DO [Primary Care Provider] - Diet: Regular Addtl Attending Provider Instructions: Please check your blood pressures regularly for the next week. Your blood pressure will fluctuate. If your blood pressure continues to remain low, you will need to be seen by your primary care physician or your graduate teaching assistant. ACTIVITY RECOMMENDATIONS: SELF CARE INSTRUCTIONS AFTER TOTAL KNEE REPLACEMENT A. You may need to continue a physical therapy program after discharge from the hospital. There are several options available to you. Your doctor will assist you in selecting the best one for you. 1. An out-patient facility 2 to 3 times a week for therapy or home therapy. 2. Continue working on all exercises taught to you in the hospital. Your goals should be to increase bending of your knee to 90 degrees and beyond and to fully straighten your knee. B. You may progress at your own pace from walking with a walker or crutches to a cane; then to no assistive devices. C. Make walking a part of your daily routine. Be up as much as comfortable with rest periods throughout the day. Rest with leg elevation is very important. Use the ice wrap frequently for the first 3-4 weeks. D. There are no restrictions on activities. You may ride in a car, shop, participate in pattern chain builder and all social activities. E. Wear the long elastic stockings (LUCAS hose) 20 hours a day for 2 weeks after surgery. They can be removed several times a day for laundering and for a bath. F. You may shower, no tub baths until cleared by your doctor. SPECIAL CARE INSTRUCTIONS: VERY IMPORTANT TO READ AND REVIEW A. There are a few signs you need to watch for after you are home. Call [facility] if you notice any of the followin. Increased severe knee pain. Some pain is expected especially when you exercise. 2. Increased swelling in your leg or knee; pain or swelling of the calf muscle in either lower leg. 3. Any fluid drainage from the incision. 4. Shortness of breath or chest pain. B. Please call [facility] at if you have any concerns or questions about your operation or recovery. The doctor or his nurse will return your call promptly. C. You must take antibiotics before dental work, bladder, bowel or other surgery. Your doctor will provide you with a permanent care to carry describing this precaution. IMPORTANT: * REMEMBER TO TAKE XARELTO 20 MG DAILY UNLESS OTHERWISE DIRECTED. THIS IS YOUR BLOOD THINNER. * HIGH RISK PATIENTS MAY BE PRESCRIBED A STRONGER BLOOD THINNER. THIS WILL BE PROVIDED AT DISCHARGE. * CALL IF INCREASED PAIN, REDNESS, DRAINAGE OR FEVER GREATER THAT 101. * WEAR LUCAS HOSE 20 HOURS PER DAY FOR 2 WEEKS. * BRANT Dressing - This is a large suction dressing covering your incision. This will help pull any excess drainage from the wound and allow your incision to heal properly. You may shower with this if you can keep the unit outside of the shower. If any bleeding or leakage is noted please call your doctor's office. This will remain on your incision for 7 days and then should be removed. This can be done yourself or by the home nursing staff if applicable. The entire unit is disposable once removed. Once removed, keep incision clean and dry. If redness or drainage is noted, please call your surgeon. . FOLLOW UP VISIT: If appointment is not already scheduled: Please call [facility] to make a follow-up appointment for 2 weeks after your surgery at . Please follow-up with your graduate teaching assistant in the next 10 to 14 days for a medication check. Stand-Alone Forms: My [employer], Smoking Cessation Medications and DC Order Prescriptions: New acetaminophen [Tylenol Extra Strength] 500 mg Tablet 1,000 mg PO Q8 14 Days Qty: 84 0RF polyethylene glycol 3350 [Miralax] 17 gram powder in packet 17 g PO DAILY PRN (Reason: constipation) Qty: 5 0RF oxycodone 5 mg tablet 5 mg PO Q4H MDD 6 PRN (Reason: pain) Qty: 30 0RF Continued tamsulosin [Flomax] 0.4 mg Capsule 0.4 mg PO QAM Xarelto 20 mg Tablet 20 mg PO QAM Rx Instructions: must administer with evening meal metoprolol succinate 100 mg tablet extended release 24 hr 100 mg PO DAILY Discharge Orders: Discharge Order (Routine); Ordered 04/18/22 Ordered By: Horace Stokes Admission Data Admit Date/Time: 04/17/22 10:57 Attending Provider: Yasmany Cantrell Admit Provider: Yasmany Cantrell Primary Care Provider: Betzy Vazquez Other Providers: Rosangela Eubanks ; Julius Umanzor Other Interventions: Discharge Summary Assessment (RN) Last Done: 04/18/22 12:46
== END 2022-04-18 14:22 | disposition home or self-care (01) ==
LOC: PACUINP 06:43 → ASU 06:43 → 3N 12:48

== ENCOUNTER 2022-06-30 07:49 | Observation (INO) ==
--- NOTE | 2022-06-26 09:03 | Anesthesiology Consultation ---
Date of Service June 26, 2022 Assessment & Plan (1) Encounter for pre-operative examination: - s/p R TKA 04/17/22 SAB at L3-L4 1 attempt + PNB. - cardiology 02/05/22: "...afib/flutter in March 2017...cardioversion...cancelled after he was found to be in NSR echo at the time showed some septal and inferior hypokinesis which was followed up with a stress echo in May 2017 that was negative for stress induced ischemia...h/o excessive alcohol consumption...appropriately anticoagulated on Xarelto..." 1 year f/u recommended. - COVID screening: Per salvager on 06/26/2022: Travel screen negative, no known COVID-19 positive contacts or current COVID-19 related symptoms in past 2 weeks. To surgeon's discretion if preop COVID testing is needed. Chart Review Chart Review: Acceptable Risk for Surgery and Patient NOT seen in Pre Admission Testing History Surgery Operation Date: 06/30/22 09:30 Proposed Procedures p TURP (Transurethral Resection of the Prostate) - Juan Antonio Belle DO Height/Weight Height: 5 ft 10.5 in Weight: 79.379 kg Allergies Allergy/AdvReac Type Severity Reaction Status Date / Time No Known Allergies Allergy Verified 06/26/22 07:34 Medications Home Medications Medication Instructions Recorded Confirmed Last Taken rivaroxaban 20 mg tablet (Xarelto) 20 mg PO QAM 03/14/22 06/26/22 04/11/22 tamsulosin 0.4 mg capsule (Flomax) 0.4 mg PO QAM 03/14/22 06/26/22 04/17/22 06:05 metoprolol succinate 100 mg 100 mg PO DAILY 04/17/22 06/26/22 Unknown tablet,extended release 24 hr ciprofloxacin HCl 500 mg tablet 500 mg PO BID #14 tabs 06/24/22 06/26/22 Unknown (Cipro) oxybutynin chloride 5 mg tablet 5 mg PO TID PRN bladder spasms #30 06/24/22 06/26/22 Unknown tabs oxycodone-acetaminophen 7.5 mg-325 1 tab PO Q8H PRN pain #5 tabs 06/24/22 06/26/22 Unknown mg tablet (Percocet) Past Medical History Medical History Afib on xarelto follows / [facility] cardio- [place] BPH (benign prostatic hyperplasia) Naik catheter in place GERD (gastroesophageal reflux disease) History of COVID-19 02/16/2022 home test-sore throat, cough, ghotra, no hospitalization no current issues HLD (hyperlipidemia) HTN (hypertension) On anticoagulant therapy xarelto>ON HOLD FOR SURGERY Pre-diabetes Sleep apnea no device Urinary retention NAIK IN PLACE>BPH AND UTI UTI (urinary tract infection) REASON FOR CIPRO Past Family History Family History Father Diabetes Myocardial infarction Mother , 80 Lymphoma Other No family history of adverse response to anesthesia Past Surgical History Surgical History (Updated 06/26/22 @ 08:57 by Razia Pfeiffer PA-C) History of cystoscopy History of total knee replacement RT TKA 04/17/2022 SAB at L3-L4 1 attempt + PNB. S/P colonoscopy S/P eye surgery 10 yrs old *MUSCLE REPAIR BILAT. EYES S/P tonsillectomy and adenoidectomy Social History Smoking Status: Never smoker Hx Alcohol Use: Yes (4 beers per day>SEE COMMENT BELOW) Alcohol type: beer alcohol intake frequency: 3 or more drinks per day Alcohol Intake Frequency Comment: HAS HAD NO BEER/ALCHOHOL INTAKE SINCE 04/17/22 Hx Substance Use: No substance use type: does not use Lab Results Anesthesia Preop Results Results Anesthesia Widget: WBC 4.55 K/ul (4.8-10.8) L 06/24/22 Hgb 10.8 g/dl (14.0-18.0) L 06/24/22 Hct 32.5 % (40.1-51.0) L 06/24/22 Plt 297 K/uL (130-400) 06/24/22 Na 139 mmol/L (136-145) 06/24/22 K 4.1 mmol/L (3.5-5.1) 06/24/22 Cl 104 mmol/L (98-107) 06/24/22 CO2 29 mmol/L (21-32) 06/24/22 BUN 10 mg/dl (6-23) 06/24/22 Creat 0.77 mg/dl (0.6-1.4) 06/24/22 Glucose Level 99 mg/dl (70-99(Fasting)) 06/24/22 Testing Electrocardiogram Date: 03/17/22 Sinus bradycardia with 1st degree AV block, rate 59 bpm Chest X-Ray Date: 03/17/22 Cardiomediastinal and hilar silhouettes are within normal limits. Atherosclerosis of the aorta. Hyperinflation with diaphragmatic flattening. No pneumothorax, pleural effusion, airspace consolidation or overt pulmonary edema. Degenerative changes of the shoulders and spine. IMPRESSION: No acute process Stress Test Date: 05/21/17 Exercise METS 8.5 MPHR 93% Negative stress echo for ischemia EF 55-60%
[~2022-06-30 07:49] MED LIST changes: -ACETAMINOPHEN 500 MG TAB PO SCH; -BUPIVACAINE 0.5 % 5 MG/1 ML PF 10ML VIAL ONE; -CeleBREX 200 MG CAP PO SCH; -FAMOTIDINE 20 MG TAB PO SCH; -GABAPENTIN 300 MG CAP PO SCH; +LIDOCAINE 2% MPF LOCAL 5 ML VIAL INFIL ONE; +LR 15ML/HR IV SCH; -LR 500ML BOLUS, THEN 15ML/HR IV SCH; -METOCLOPRAMIDE HCL 10 MG TABLET PO SCH; +ONDANSETRON INJ 2 MG/ML 2 ML VIAL ONE; +PROPOFOL IV EMULSION 10 MG/ML 20 ML VIAL IV ONE; -ROPIVACAINE 0.5% 5 MG/ML 30 ML VIAL ONE; -ROPIVACAINE 0.5% HCL/PF 150 MG, BUPIVACAINE 0.75% MPF 20 ML, EPINEPHrine 30MG/30ML (OR ... INFIL SCH; -TRANEXAMIC ACID 1,000 MG **IV Intra-op IV SCH; -TRANEXAMIC ACID 1,000 MG **IV Pre-op IV SCH; -ceFAZolin 2000MG 2,000 MG/15 ML SYR IV SCH; +cefTRIAXone SODIUM 1,000 MG in DEXTROSE 5% 50 ML IV SCH; -dexAMETHasone 4 MG TAB PO SCH; +fentaNYL citrate 100 MCG/2 ML VIAL ONE
--- NOTE | 2022-06-30 08:54 | History & Physical Bridge Note ---
Date of Service June 30, 2022 History & Physical Bridge Note I have examined the patient, reviewed the History & Physical and in the interval since the performance of the History & Physical I have noted the following changes of clinical significance: no changes noted
[2022-06-30] MEDS ORDERED: ePHEDrine sulfate 50 MG/ML AMP IV PRN (10:51)
[2022-06-30] MEDS ORDERED: ONDANSETRON INJ 2 MG/ML 2 ML VIAL IV PRN ×2 (10:51→13:49)
[2022-06-30] MEDS ORDERED: PROMETHAZINE HCL 12.5 MG in SODIUM CHLORIDE 0.9% 50 ML IV PRN (10:51)
[2022-06-30] MEDS ORDERED: ATROPINE SULFATE 0.1 MG/ML 10ML SYR IV PRN (10:51)
[2022-06-30] MEDS ORDERED: fentaNYL citrate 100 MCG/2 ML VIAL ONE (11:14)
[2022-06-30] MEDS ORDERED: BELLADONNA/OPIUM SUPP 60 MG SUPP PR ONE ×3 (11:37→13:49)
--- NOTE | 2022-06-30 12:04 | Operative Report ---
PG Post Operative Report Pre & Post Diagnosis Operation Date: 06/30/22 09:30 Pre-Op Diagnosis: Benign Prostatic Hyperplasia Post-Op Diagnosis: Benign Prostatic Hyperplasia I identified the patient and participated in the time-out.: Yes Procedure Operation Date: 06/30/22 09:30 Actual Procedures p Transurethral Resection of the Prostate and destruction/extraction of Prostate/bladder stones (Not Applicable) - Juan Antonio Belle DO Surgeon Juan Antonio Belle, II, DO Word Processing Operator None Estimated Blood Loss 10 Findings Consistent with Post-Op Diagnosis Large Prostate with obstruction. False passage in prostatic urethra into the left lateral lobe of prostate. Numerous prostate/bladder stones destroyed/removed. Specimens Prostate adenoma. Drains [address] 24Fr Catheter Anesthesia Type General Complications none Disposition Disposition: Recovery Room Indications Patient with obstruction due to prostate enlargement. Risks and benefits discussed at length. Description of Procedure Patient was consented and brought back to the operating room. Patient was placed under anesthesia in the supine position and moved to the dorsal lithotomy position. Patient was prepped and draped in the regular sterile fashion. A time out was completed. A 30degree Cystoscope was placed into the bladder and the entire bladder was examined. The UO's were identified as well as the bladder neck, trigone, dome, and the other important landmarks. The prostatic urethra and large lobes/adenoma was assessed and the veru and bladder neck identified and area/size was assessed. Patient had a large false passage in the sulci between the median lobe and the left lateral lobe. A large amount of stone was discovered in the prostatic urethra with a large amount in the false passage. Stones were also discovered in the bladder. Numerous small stones approx 2-7 mm in size . The resection scope was placed and the fine bipolar loop was selected. Starting at the 5 and 7 o'clock positions, a channel was created from bladder neck to the veru. These channels were then used to resect the median lobe. The median lobe was very large and hand numerous pockets/crypts with debris and stone. The resection was taken down to capsule fibers. The Specimen was removed and sent for analysis. Larger stones were destroyed and the stone material and bulk was extracted. The resection bed and any bleeding areas were fulgurated/cauterized and the entire area inspected. All bleeding was controlled. With the median lobe completely resected the patient had a good channel cleared. Significant edema was noted in the bladder. The area of false passage had been removed and the major issues improved. At this point, it was decided to allow time for healing with possible need for resection of lateral lobes in the future. The bladder was inspected a final time. The bladder was emptied and irrigated. All specimen and debris was removed. The scope was removed with the bladder partially full. A catheter was placed and balloon elevated. This was easily irrigated. The patient was cleaned, aroused from anesthesia, and transferred to the pacu in stable condition having tolerated the procedure well with no complications. I was present and participated in all aspects of the procedure. The patient will be monitored in the PACU until transferred. Will observe overnight with CBI. Plan to monitor. Will followup in 10-14 days for catheter removal. Will plan phone call in 2-3 weeks with pathology. I attest to the content of the Intraoperative Record and any orders documented therein. Any exceptions are noted below.
[2022-06-30] MEDS: fentaNYL citrate 100 MCG/2 ML VIAL IV PRN ×4 (12:07→12:22)
[2022-06-30] MEDS: HYDROmorphone INJ 2 MG/ML SYR/VIAL IV PRN ×4 (12:27→12:46)
[2022-06-30] MEDS ORDERED: OXYBUTYNIN CHLORIDE 5 MG TAB PO PRN (13:49)
[2022-06-30] MEDS ORDERED: MoRPHine SULFATE 2 MG/ML CARP IV PRN (13:49)
[2022-06-30] MEDS ORDERED: PHENAZOPYRIDINE HCL 200 MG TAB PO PRN (13:49)
--- NOTE | 2022-06-30 14:05 | Anesthesiology Progress Note ---
Date of Service June 30, 2022 Anesthesia Post Procedure Vital Signs Vital Signs: Temp Pulse Pulse Resp BP Pulse Ox O2 Del Method 06/30/22 13:30 78 21 163/90 H 100 Nasal Cannula 06/30/22 13:00 66 18 172/91 H 100 Nasal Cannula 06/30/22 12:50 66 22 171/90 H 99 Nasal Cannula 06/30/22 12:40 73 18 172/88 H 100 Nasal Cannula 06/30/22 12:30 72 18 171/84 H 98 Nasal Cannula 06/30/22 12:20 71 24 168/91 H 100 Nasal Cannula 06/30/22 12:10 70 21 169/83 H 100 Oxymask 06/30/22 12:03 36.1 C L 75 20 174/90 H 100 Oxymask 06/30/22 08:14 36.6 C 62 20 138/74 138 H O2 Flow Rate 06/30/22 13:30 2 06/30/22 13:00 2 06/30/22 12:50 2 06/30/22 12:40 2 06/30/22 12:30 2 06/30/22 12:20 2 06/30/22 12:10 6 06/30/22 12:03 6 06/30/22 08:14 Pain Intensity Penis: Pain Intensity: 7 Transfer of Care Handoff Completed per policy Notes Mental Status: alert / awake / arousable and participated in evaluation Patient Amnestic to Procedure: Yes Nausea / Vomiting: adequately controlled Pain: adequately controlled Airway Patency, RR, SpO2: stable & adequate BP & HR: stable & adequate Hydration State: stable & adequate Anesthetic Complications: no major complications apparent
[2022-06-30] MEDS: oxyCODONE/ACETAMINOPHEN 5mg/325mg TAB PO PRN ×2 (14:10→23:06)
[2022-06-30] MEDS: CIPROFLOXACIN / D5W 400 MG/200 ML BAG IV SCH (15:22)
[2022-06-30] MEDS: DOCUSATE SODIUM 100 MG CAP PO SCH ×2 (15:22→19:54)
[2022-06-30] MEDS: SODIUM CHLORIDE 0.9% 1000ML 1,000 ML IV SCH (16:30)
[2022-06-30] MEDS: METOPROLOL SUCC 50MG EXT REL TAB PO SCH (16:31)
[2022-06-30 16:45] LABS: Basophils # (auto) 0.04 K/uL (0-0.2); Basophils % (auto) 0.4 %; Eosinophils # (auto) 0.19 K/uL (0-0.50); Eosinophils % (auto) 2.1 %; Hematocrit (blood only) 31.1 % (40.1-51.0); Hemoglobin 10.5 g/dl (14.0-18.0); Immature Granulocytes # (auto) 0.15 K/uL (0.00-0.02); Immature Granulocytes % (auto) 1.6 %; Lymphocytes # (auto) 2.08 K/uL (1.2-3.4); Lymphocytes % (auto) 22.9 %; Mean Corpuscular Hemoglobin 30.7 pg (25.0-34.0); Mean Corpuscular Hgb Conc 33.8 g/dL (32.0-36.0); Mean Corpuscular Volume 90.9 fL (80.0-100.0); Mean Platelet Volume 9.8 fL (9.4-12.4); Monocytes # (auto) 0.65 K/uL (0.24-0.82); Monocytes % (auto) 7.1 %; Neutrophils # (auto) 5.99 K/uL (1.4-6.5); Neutrophils % (auto) 65.9 %; Platelet Count 420 K/uL (130-400); RDW Coefficient of Variation 16.9 % (11.5-14.5); RDW Standard Deviation 55.9 fL (36.4-46.3); Red Blood Count 3.42 M/uL (4.63-6.08)
[2022-06-30 17:09] LABS: Albumin Globulin Ratio 1.4 (0.9-2); Albumin Level 3.4 gm/dl (3.4-5.0); BUN Creatinine Ratio 12.3 (10-20); Bilirubin,Total 0.4 mg/dl (0.2-1.0); Calcium 8.6 mg/dl (8.5-10.1); Creatinine Clr Calc Pharmacy 87.8 ml/min; Est GFR (African American) 102.9 ml/min; Est GFR (Non-African American) 88.8 ml/min; Globulin 2.5 gm/dl (2.5-4.0); Potassium 3.6 mmol/L (3.5-5.1); Total Protein 5.9 gm/dl (6.0-8.3)
[2022-06-30] MEDS: TAMSULOSIN HCL 0.4 MG CAP PO SCH (17:21)
--- NOTE | 2022-06-30 18:57 | Hospitalist Consultation ---
Date of Consultation June 30, 2022 Assessment & Plan (1) S/P TURP (transurethral resection of prostate): (2) Urinary retention: (3) Afib: (4) HTN (hypertension): (5) BPH (benign prostatic hyperplasia): (6) Pre-diabetes: Plan Timo is a 72 year old male with history of A Fib, urinary retention, BPH, and osteoarthritis of the R knee who is beeing seen for post-op medical management. He is s/p transurethral resection of prostate w/ Dr. Belle and is POD #1. S/p TURP/Urinary Retention/BPH - POD #[address] Sadler - Naik catheter w/ irrigation remains, draining clear/red fluid - Pain well controlled with current regimen (Percocet 5mg/325mg Q4 PRN) - Continue Ciprofloxacin 400 mg Q12 per Urology recommendation - Continue Flomax (Tamsulosin) 0.4 mg PO QAM AFib - Currently NSR - EKG ordered, pending - Home dose Xarelto held prior to surgery - Re-initiation of home Xarelto deferred to surgical team - Continue home dose Metoprolol 100 mg daily HTN - Currently stable, monitor - Continue home dose Metoprolol 100 mg daily Pre-diabetes - Hgb 5.9 (03/2022) - Patient unfamilliar with diagnosis - No current medical management FEN: Regular IVF: NSS @ 75 mL/hr Code status: Full Code DVT ppx: SCD, Marc held defer to surgical team Isolation: None Dispo:Med/Surg Supervising Physician Co-Signing Physician Notes Attending addendum: I have physically seen this patient, have supervised the JESSE's ativities, and agree with the H&P unless as otherwise noted. Assessment and Plan: Status post TURP for BPH with urinary retention- Meds per Dr. Belle Seen postoperatively is medically stable Atrial fibrillation/hypertension- Currently in normal sinus rhythm Return to Xarelto he is when okay with primary surgical team Continue metoprolol with hold parameters No acute medical issues at this time Will follow along during stay History of Present Illness Reason for Consultation: Post-op medical management Requesting Physician: Juan Antonio Belle II, DO Attending Physician: Kofi Guzmán MD History of Present Illness Timo is a 72 year old male with history of A Fib, urinary retention, BPH, and osteoarthritis of the R knee who is beeing seen for post-op medical management. He is s/p transurethral resection of prostate w/ Dr. Belle and is POD #1. Patient notes that he is feeling well post-procedure, he is currently in 6/10 pain and believes that his pain medication from 2PM is wearing off. Patient's pain is primarily located around the urethra/catheter insertion. Patient experiences complete pain relief with current pain regimen. He denies any chest pain, dyspnea, abdominal pain, headaches, or lightheadedness. Patient notes mild pressure in his lower abdomen, w/o pain. No alcohol or tobacco use. PMH: Reviewed with patient Medications: Reviewed with patient Allergies Allergy/AdvReac Type Severity Reaction Status Date / Time No Known Allergies Allergy Verified 06/30/22 08:10 Home Medications Medication Instructions Recorded Confirmed Type rivaroxaban 20 mg tablet (Xarelto) 20 mg PO QAM 03/14/22 06/30/22 History tamsulosin 0.4 mg capsule (Flomax) 0.4 mg PO QAM 03/14/22 06/30/22 History metoprolol succinate 100 mg 100 mg PO DAILY 04/17/22 06/30/22 History tablet,extended release 24 hr ciprofloxacin HCl 500 mg tablet 500 mg PO BID #14 tabs 06/24/22 06/30/22 Rx (Cipro) oxybutynin chloride 5 mg tablet 5 mg PO TID PRN bladder spasms #30 06/24/22 06/30/22 Rx tabs ciprofloxacin HCl 500 mg tablet 500 mg PO BID #10 tabs 07/01/22 Rx docusate sodium 100 mg capsule 100 mg PO BID #60 caps 07/01/22 Rx (Colace) oxycodone-acetaminophen 5 mg-325 1 tab PO TID PRN pain #10 tabs 07/01/22 Rx mg tablet (Percocet) Patient History Medical History Afib on xarelto follows / [facility] cardio- [place] BPH (benign prostatic hyperplasia) Naik catheter in place GERD (gastroesophageal reflux disease) History of COVID-19 02/16/2022 home test-sore throat, cough, ghotra, no hospitalization no current issues HLD (hyperlipidemia) HTN (hypertension) On anticoagulant therapy xarelto>ON HOLD FOR SURGERY Pre-diabetes Sleep apnea no device Urinary retention NAIK IN PLACE>BPH AND UTI UTI (urinary tract infection) REASON FOR CIPRO Surgical History (Updated 06/30/22 @ 19:10 by Jaylon Sosa DO) History of cystoscopy History of total knee replacement RT TKA 04/17/2022 SAB at L3-L4 1 attempt + PNB. S/P colonoscopy S/P eye surgery 10 yrs old *MUSCLE REPAIR BILAT. EYES S/P tonsillectomy and adenoidectomy Family History Father Diabetes Myocardial infarction Mother , 80 Lymphoma Other No family history of adverse response to anesthesia Social History Smoking Status: Never smoker Second Hand Exposure: No; Hx Alcohol Use: No Hx Substance Use: No Preferred Language: Bulgarian Communication Ability: Effective Visual Impairment: No Limitations C++ Quant Developer Required: No Beliefs That Will Affect Care: None Current Living Situation: Alone Current Living Situation Comment: home with significant other. Feels Safe at Home: Yes Assistive Devices: None Review of Systems Review of Systems: As per HPI Physical Exam Physical Exam: Gen: NAD, alert, interactive Resp:Non-labored, no wheezing/rhonchi/rales, CTAB CV:RRR, normal S1/S2, no M/R/G Abd: Soft, non-distended, no TTP, normoactive bowels, no masses Extr: 2+ dp bilaterally, no edema Skin: No rashes lesions or erythema Urinary Catheter present, draining clear, sanguinous fluid Results & Data Results & Data ([facility]) Vital Signs (Past 12 Hours) Vital Signs Temp Pulse Pulse Pulse Resp BP Pulse Ox 06/30/22 18:26 36.5 C 19 132/69 97 06/30/22 18:33 36.7 C 70 19 146/79 H 99 06/30/22 16:03 36.7 C 70 19 146/79 H 99 06/30/22 16:00 73 06/30/22 14:30 67 13 166/85 H 100 06/30/22 14:00 78 24 165/95 H 99 06/30/22 13:30 78 21 163/90 H 100 06/30/22 13:00 66 18 172/91 H 100 06/30/22 12:50 66 22 171/90 H 99 06/30/22 12:40 73 18 172/88 H 100 06/30/22 12:30 72 18 171/84 H 98 06/30/22 12:20 71 24 168/91 H 100 06/30/22 12:10 70 21 169/83 H 100 06/30/22 12:03 36.1 C L 75 20 174/90 H 100 06/30/22 08:14 36.6 C 62 20 138/74 138 H O2 Del Method O2 Flow Rate 06/30/22 18:26 Room Air 06/30/22 18:33 Room Air 06/30/22 16:03 Room Air 06/30/22 16:00 06/30/22 14:30 Room Air 06/30/22 14:00 Room Air 06/30/22 13:30 Nasal Cannula 2 06/30/22 13:00 Nasal Cannula 2 06/30/22 12:50 Nasal Cannula 2 06/30/22 12:40 Nasal Cannula 2 06/30/22 12:30 Nasal Cannula 2 06/30/22 12:20 Nasal Cannula 2 06/30/22 12:10 Oxymask 6 06/30/22 12:03 Oxymask 6 06/30/22 08:14 Resident Activity Tracking Resident Involvement: Resident Care Provided Care Provided: Adult [facility] Medicine
[2022-07-01] MEDS: CIPROFLOXACIN / D5W 400 MG/200 ML BAG IV SCH (00:34)
[2022-07-01] MEDS: oxyCODONE/ACETAMINOPHEN 5mg/325mg TAB PO PRN ×2 (04:15→08:01)
[2022-07-01] MEDS: SODIUM CHLORIDE 0.9% 1000ML 1,000 ML IV SCH (04:15)
[2022-07-01] MEDS: DOCUSATE SODIUM 100 MG CAP PO SCH (08:01)
[2022-07-01] MEDS: METOPROLOL SUCC 50MG EXT REL TAB PO SCH (08:02)
[2022-07-01] MEDS: TAMSULOSIN HCL 0.4 MG CAP PO SCH (08:02)
--- NOTE | 2022-07-01 08:13 | Urology Progress Note ---
Date of Service July 01, 2022 Assessment & Plan (1) BPH (benign prostatic hyperplasia): (2) S/P TURP (transurethral resection of prostate): Plan: - Pt POD#1 s/p TURP with Dr. Belle - Doing well, progressing as expected - Tolerating PO diet - 3 way Sepulveda catheter intact, patent and draining clear yellow urine with CBI on slow - CBI clamped @0720 - will reassess later this AM - Maintain Sepulveda catheter for 10-[address] Belle - Continue course of Ciprofloxacin upon discharge - Patient can resume Xarelto on 07/03 if urine remains clear to pink - Anticipate home with Sepulveda catheter later today presuming urine appropriate and he continues to progress as expected - Expected clinical course reviewed, all questions answered - Will arrange outpatient follow-up with our service for voiding trial - Patient reexamined this am and Sepulveda remains clear to light pink with CBI clamped. Orders placed to discontinue CBI set up, plug irrigation port. Patient is ready for discharge to home with Sepulveda cathete - orders placed. Admission and Anticipated Discharge Date Admission Date: June 30, 2022 Subjective Patient awake and resting in bed. No acute issues overnight. He reports some intermittent discomfort in penis and suprapubic area. Tolerating Sepulveda catheter. Sepulveda is patent and draining clear yellow urine with CBI on slow. CBI clamped at 0720. No nausea or vomiting. No fever or chills. Review of Systems Constitutional: as per Subjective / HPI Gastrointestinal: as per Subjective / HPI Genitourinary: + as per Subjective / HPI Physical Exam Constitutional: well developed and well nourished; no acute distress Respiratory: normal respiratory effort; no respiratory distress and no labored breathing Gastrointestinal (Abdomen): Inspection/Auscultation: abdomen normal to inspection; abdomen not distended Neurologic: moves all extremities and awake Psychiatric: Orientation: alert and oriented x 3 Genitourinary: Sepulveda intact and draining clear yellow urine with CBI on slow. CBI clamped at 0720. Results & Data ([facility]) Vital Signs (Past 12 Hours) Vital Signs Temp Pulse Pulse Resp BP Pulse Ox O2 Del Method 07/01/22 07:40 36.8 C 63 16 120/68 95 Room Air 07/01/22 02:48 36.4 C L 62 17 123/64 96 Room Air 06/30/22 23:48 65 06/30/22 23:00 36.2 C L 66 18 149/77 H 96 Room Air PG Care Time/CCT Total # of Minutes Spent Total Time Spent with Patient: Total time spent is greater than 50% in coordination of care (as documented) at patient's floor/unit and/or counseling patient: Coding Level of Care Code None Diagnoses BPH (benign prostatic hyperplasia) N40.0 S/P TURP (transurethral resection of prostate) Z90.79
--- NOTE | 2022-07-01 08:33 | Hospitalist Progress Note ---
Date of Service July 01, 2022 Assessment & Plan (1) HTN (hypertension): Plan: -stable on Metoprolol 100mg (2) Afib: Plan: -Rate controlled on Metorolol 100mg -Xarelto held for surgery -Restart Xarelto per primary team (3) Pre-diabetes: Plan: -continue to follow with PCP -Continue low carb diet, exercise and weight management (4) BPH (benign prostatic hyperplasia): Plan: -S/P TURP post op day #1 -Surgery went well and no complications -With meredith catheter (5) S/P TURP (transurethral resection of prostate): Plan: -Post op day#1 -Surgery went well Plan Discussed with patient to follow up with his PCP in the next week. Will need to restart the Xarelto per urology Discussed may need to continue the stool softeners and encouraged adequate po fluid and fiber intake Discussed patient with Dr Magaña Admission and Anticipated Discharge Date Admission Date: June 30, 2022 Subjective Patient seen today on rounds, he is s/p TURP POD #[address] Belle and the hospitalist service is on consult for medical management. Patient is awake in bed in [facility]. He has no complaints. He tells me he is tolerating a regular diet, is passing flatus and has no abdominal pain, nausea, chest pain or dyspnea. Patient tells me he is being discharged home later today. Review of Systems Constitutional: no fever, no chills and no weight loss Respiratory: no cough, no chest congestion and no dyspnea Cardiovascular: no chest pain, no dyspnea, no edema and no calf pain Gastrointestinal: no abdominal pain, no nausea and no vomiting Integumentary: no rash, no lesions and no pruritus Physical Exam Constitutional: WD/WN, vitals as above Neck: trachea midline, no thyromegaly Respiratory: normal respiratory effort, lungs clear to auscultation Cardiovascular: RRR, no murmur, no edema Gastrointestinal (Abdomen): normal bowel sounds, soft, nontender, no hepatosplenomegaly Skin: no rashes, warm and dry Results & Data Results & Data ([facility]) Vital Signs (Past 12 Hours) Vital Signs Temp Pulse Pulse Resp BP Pulse Ox O2 Del Method 07/01/22 07:40 36.8 C 63 16 120/68 95 Room Air 11/22/22 02:48 36.4 C L 62 17 123/64 96 Room Air 06/30/22 23:48 65 06/30/22 23:00 36.2 C L 66 18 149/77 H 96 Room Air Laboratory Results Laboratory Results - last 24 hr 06/30/22 06/30/22 16:30 16:30 WBC 9.10 RBC 3.42 L Hgb 10.5 L Hct 31.1 L MCV 90.9 MCH 30.7 MCHC 33.8 RDW Std Deviation 55.9 H RDW Coeff of Silvia 16.9 H Plt Count 420 H MPV 9.8 Immature Gran % (Auto) 1.6 Neut % (Auto) 65.9 Lymph % (Auto) 22.9 [place] % (Auto) 7.1 Eos % (Auto) 2.1 Baso % (Auto) 0.4 Neut # (Auto) 5.99 Lymph # (Auto) 2.08 [place] # (Auto) 0.65 Eos # (Auto) 0.19 Baso # (Auto) 0.04 Immature Gran # (Auto) 0.15 H Sodium 137 Potassium 3.6 Chloride 106 Carbon Dioxide 24 Anion Gap 7 BUN 10 Creatinine 0.81 Est Cr Clr Drug Dosing 87.8 Est GFR ( Amer) 102.9 Est GFR (Non-Af Amer) 88.8 BUN/Creatinine Ratio 12.3 Glucose 138 H Calcium 8.6 Total Bilirubin 0.4 AST 16 ALT 14 Alkaline Phosphatase 49 Total Protein 5.9 L Albumin 3.4 Globulin 2.5 Albumin/Globulin Ratio 1.4 PG Care Time/CCT Total # of Minutes Spent Total Time Spent with Patient: Total time spent is greater than 50% in coordination of care (as documented) at patient's floor/unit and/or counseling patient: Coding Level of Care Code 84069 Subseq Hosp Care Lvl 3 Medical Decision Making Moderate Complexity Diagnoses HTN (hypertension) I10 Afib I48.91 Pre-diabetes R73.03 BPH (benign prostatic hyperplasia) N40.0 S/P TURP (transurethral resection of prostate) Z90.79 Time Spent (min) 25
--- NOTE | 2022-07-01 16:26 | Discharge Summary ---
Date of Service July 01, 2022 Admission HPI Per Admitting Provider Patient with BPH with obstruction/LUTS and urinary retention here for transurethral resection of prostate. Admission Exam Per Admitting Provider General: Alert in no acute distress. HEENT: Inspection normal Psychologic: Normal affect. Respiratory: Nonlabored. No use of accessory muscles. Skin: [place] and Dry. No rashes or visible lesions. Principal Diagnosis BPH Discharge Exam Constitutional: well developed and well nourished; no acute distress Respiratory: normal respiratory effort; no respiratory distress and no labored breathing Gastrointestinal (Abdomen): Inspection/Auscultation: abdomen normal to inspection; abdomen not distended Neurologic: moves all extremities and awake Psychiatric: Orientation: alert and oriented x 3 Genitourinary: Sepulveda intact and draining clear yellow urine with CBI on slow. CBI clamped at 0720. Discharge Data Allergies Allergy/AdvReac Type Severity Reaction Status Date / Time No Known Allergies Allergy Verified 06/30/22 08:10 Consultations 06/30/22 13:49 Consult Hospitalist Routine Procedures Performed Operation Date: 06/30/22 09:30 Actual Procedures p Transurethral Resection of the Prostate(Not Applicable) - Juan Antonio Belle, DO Hospital Course (1) BPH (benign prostatic hyperplasia): (2) S/P TURP (transurethral resection of prostate): - Pt POD#1 s/p TURP with Dr. Belle - Doing well, progressing as expected - Tolerating PO diet - 3 way Sepulveda catheter intact, patent and draining clear yellow urine with CBI on slow - CBI clamped @0720 - will reassess later this AM - Maintain Sepulveda catheter for 10-[address] Belle - Continue course of Ciprofloxacin upon discharge - Patient can resume Xarelto on 07/03 if urine remains clear to pink - Anticipate home with Sepulveda catheter later today presuming urine appropriate and he continues to progress as expected - Expected clinical course reviewed, all questions answered - Will arrange outpatient follow-up with our service for voiding trial - Patient reexamined this am and Sepulveda remains clear to light pink with CBI clamped. Orders placed to discontinue CBI set up, plug irrigation port. Patient is ready for discharge to home with Sepulveda cathete - orders placed. Total Time Total Time Spent Total Time Spent (In Minutes): 29 Discharge Plan Discharge Items Patient Disposition: Home - Self-Care Reason For Visit: BPH (Benign Prostatic Hyperplasia) Discharge Diagnosis: BPH Activity: Per Instructions section Lifting: No more than 25 pounds Bathing Comment: Okay to shower, no tub bath or soaking Sexual Activity: Wait until after follow-up appointment Exercise/Sports: Wait until after follow-up appointment Driving/Machine Use: No driving while taking prescription pain medication Non-emergency contact: Surgeon Call non-emergency contact if: your pain is not controlled, you have a fever and your temperature is above 101 Follow-up/Referrals: Betzy Vazquez DO [Primary Care Provider] - 07/07/22 8:20 am Diet: Regular Addtl Attending Provider Instructions: Please take all medications as prescribed and keep all follow-ups as scheduled. Please call our office at [phone] with any questions, concerns or need to reschedule appointments for any reason. We are happy to assist you. You can restart your Xarelto on , 07/03, if your urine remains clear to pink. Call office if any questions or concerns. Continue your antibiotic Ciprofloxacin as directed. You can use Tylenol as needed for post operative pain. A prescription was sent to your pharmacy for Percocet to take up to three times daily as needed for severe/breakthrough pain. This medication contains Tylenol. Do not exceed 3000 mg of Tylenol in 24 hours. Tips for your recovery at home: Dont be alarmed by brownish or reddish blood or clots in your urine. This is a result of the procedure. This may occur off and on for weeks to months after the procedure but should continue to improve. Drink plenty of fluids during the day (enough to keep your urine very light colored). This will help keep a healthy flow of urine. Do not lift >25 lbs until your followup Avoid constipation. Please use a stool softener (Colace) for the first two weeks after your procedure Be sure to finish the antibiotics as prescribed. If you go home with a catheter, please wash tubing where it enters your body twice daily with mild soap (Dove or Dial). Once your catheter is removed, expect some blood in your urine and some burning when you urinate. You should have an appointment to have this removed, if you do not please call our office to arrange. Addtl Clinic Manager Provider Instructions: Follow up with Primary Care Provider (has appt 07/07/22 per patient) Resume Xarelto when advised by urology To avoid constipation - Advised to take stool softeners, intake adequate fluids, continue to drink prune juice (per patient helps to move his bowels) Pending Studies at Discharge: Yes Studies:: Pathology Stand-Alone Forms: [facility], Smoking Cessation Medications and DC Order Prescriptions: New ciprofloxacin HCl 500 mg tablet 500 mg PO BID Qty: 10 0RF docusate sodium [Colace] 100 mg capsule 100 mg PO BID Qty: 60 0RF Rx Instructions: Take twice daily for 2 weeks, then as needed for constipation. oxycodone-acetaminophen [Percocet] 5-325 mg tablet 1 tab PO TID PRN (Reason: pain) Qty: 10 0RF Rx Instructions: post operative breakthrough pain Continued ciprofloxacin HCl [Cipro] 500 mg tablet 500 mg PO BID Qty: 14 0RF Label Comments: tx uti oxybutynin chloride 5 mg tablet 5 mg PO TID PRN (Reason: bladder spasms) Qty: 30 0RF tamsulosin [Flomax] 0.4 mg Capsule 0.4 mg PO QAM Label Comments: on hold Xarelto 20 mg Tablet 20 mg PO QAM Label Comments: on hold Rx Instructions: must administer with evening meal metoprolol succinate 100 mg tablet extended release 24 hr 100 mg PO DAILY Label Comments: QAM Discontinued oxycodone-acetaminophen [Percocet] 7.5-325 mg tablet 1 tab PO Q8H PRN (Reason: pain) Qty: 5 0RF Discharge Orders: Discharge Order (Routine); Ordered 07/01/22 Ordered By: Suzi Auguste Admission Data Admit Date/Time: 06/30/22 09:00 Attending Provider: Juan Antonio Belle Admit Provider: Juan Antonio Belle Primary Care Provider: Betzy Vazquez Other Providers: Kofi Guzmán ; Ana Rosa Elliott ; Willie Cai ; Timo Lang ; Kareem Blanchard ; Bradford Chand ; Nilo Wall ; Beatrice Turner ; Corrnie Leonardo ; Santana Dean ; Karo Abel ; Freddie Stoll ; Noé Huddleston ; Lalita Perkins ; Evangelina Ernst ; Therese López ; Romario Goldman ; Shaka Sandoval ; Sravanthi Frost ; Ana Rosa Conde ; Pippa Goodwin ; Blair Don ; Willie Castle ; Joie Herrera ; Nasim Gilbert ; Will Sweeney ; Dinora Thornton ; Butch Magaña ; Deepti Muhammad ; Nick Kumar ; Fide Khanna ; Patrick Quevedo ; Kailyn [place] ; Josefina Waddell ; Rogelio Serna Other Interventions: Discharge Summary Assessment (RN) Last Done: 07/01/22 11:22 Coding Level of Care Code D/C DAY MANAGEMENT <30 MINS Diagnoses BPH (benign prostatic hyperplasia) N40.0 S/P TURP (transurethral resection of prostate) Z90.79
--- NOTE | 2022-07-01 20:04 | Billing Data ---
Date of Service July 01, 2022 Coding Level of Care Code 09900 Inpt Consult Level 3
--- NOTE | 2022-07-02 23:33 | Electrocardiogram Report ---
Test Reason : Blood Pressure : / mmHG Vent. Rate : 060 BPM Atrial Rate : 060 BPM P-R Int : 202 ms QRS Dur : 074 ms QT Int : 432 ms P-R-T Axes : 057 -03 025 degrees QTc Int : 432 ms Normal sinus rhythm Minimal voltage criteria for LVH, may be normal variant Inferior infarct , age undetermined Abnormal ECG When compared with ECG of 17-MAR-2022 10:43, No significant change was found Confirmed by Trent Lozoya ([id number]) on 07/02/2022 11:32:58 PM Referred By: Juan Antonio Belle Confirmed By:Trent Lozoya
== END 2022-07-01 12:45 | disposition home or self-care (01) ==
LOC: ASU 07:49 → PACUINP 07:49 → 2N 16:04